=== PATIENT | female | born 1960 | race Caucasian/White ===

== ENCOUNTER 2021-09-25 03:55 | Emergency (ER) | payer MEDICARE, OTHER ==
[~2021-09-25] VITALS: Ht 157 cm; Wt 81.6 kg
--- OUTSIDE RECORDS SUMMARY | 2021-09-25 04:01 | XMS REPORT | Clinical Summary ---
Author Author [facility] Organization [facility] Address Unknown Phone Unavailable Care Team Providers Care Survey Research Associate Name Role Phone None, Pcp PP Unavailable Allergies Comments Active Allergy Reactions Severity Noted Date Made pt hallucinate. Lorazepam 11/20/2019 Sulfa (Sulfonamide Anaphylaxis High 11/20/2019 Antibiotics) Medications No known medications Active Problems Not on file Social History Date Tobacco Use Types Packs/Day Years Used Current Every Day Smoker 0.5 5 Smokeless Tobacco: Never Used Comments Alcohol Use Standard Drinks/Week occasional Yes 0 (1 standard drink = 0.6 o z pure alcohol) Alcohol Habits Answer Date Recorded How often do you have a drink containing alcohol? No t asked How many drinks containing alcohol do you have on No t asked a typical day when you are drinking? How often do you have six or more drinks on one Not asked occasion? Comment: occasional 11/20/2019 Sex Assigned at Date Recorded Not on file Last Filed Vital Signs Reading Time Taken Comments Vital Sign 153/81 11/20/2019 4:11 PM GRAVEL WHEELER Blood Pressure 86 11/20/2019 4:11 PM GRAVEL WHEELER Pulse - - Temperature 16 11/20/2019 4:11 PM GRAVEL WHEELER Respiratory Rate 96% 11/20/2019 4:11 PM GRAVEL WHEELER Oxygen Saturation - - Inhaled Oxygen Concentration - - Weight - - Height - - Body Mass Index Plan of Treatment Not on file Results Not on filefrom Last 3 Months Insurance Type Payer Benefit Subscriber ID Effective Phone Address Plan / Dates Group MEDICARE MEDICARE [id number] 2016-P 2019 PART A AND [employer] [place] [phone] [place] [id number] [address] MEDICAID -Present [address] [place] [address] 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
--- OUTSIDE RECORDS SUMMARY | 2021-09-25 04:01 | XMS REPORT | Clinical Summary ---
Author Author [facility] Organization [facility] Address Unknown Phone Unavailable Care Team Providers Care Sterile Supervisor Name Role Phone Michell Carolina APRN PCP Source Comments Some departments are not documenting in the electronic medical record. If you d o not see the information that you expected, contact Release of Information in [facility] Health Information Management department at [phone] for further assistan ce in locating additional records.[facility] Allergies Not on File Medications Not on file Active Problems Not on file Social History Date Tobacco Use Types Packs/Day Years Used Never Assessed Sex Assigned at Date Recorded Not on file Last Filed Vital Signs Not on file Plan of Treatment Health Maintenance Due Date Last Done Comments HIV SCREENING 1973 DTAP/TDAP VACCINES (1 - 1976 Tdap) HEPATITIS C SCREENING 1976 PHYSICAL (COMPREHENSIVE) 1976 EXAM CERVICAL CANCER SCREENING 1979 BREAST CANCER SCREENING 1998 COLORECTAL CANCER 2008 SCREENING SHINGLES RECOMBINANT 2008 VACCINE (1 of 2) INFLUENZA VACCINE 07/01/2021 Results Not on filefrom Last 3 Months Advance Directives Patient Industrial Relations Officer Explanation Type Date Recorded Advance 05/17/2014 11:13 AM Directive/DPOA
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
--- NOTE | 2021-09-25 04:20 | ED Cough/URI ---
General Chief Complaint: COVID19 Suspect/Confirmed Stated Complaint: SOB,CONGESTION,COUGH Source: patient Exam Limitations: no limitations History of Present Illness Date Seen by Provider: Sep 25, 2021 Time Seen by Provider: 03:56 Initial Comments 61yoF coming in for cough, congestion, and SOB for a few months worsening over the past week. Taking OTC meds for congestion. More SOB with laying flat now. Does not have a lot of issues sleeping however. No fever, chills, chest pain, abd pain, n/v/d, weakness, numbness, or any other concerns. Fully vaccinated for COVID with Moderna. Used to smoke but quit a year ago. Allergies and Home Medications Allergies Coded Allergies: Sulfa (Sulfonamide Antibiotics) (Verified Allergy, Unknown, 09/25/21) Patient Home Medication List Home Medication List Reviewed: Yes Review of Systems Review of Systems Constitutional: No chills, No fever EENTM: nose congestion Respiratory: cough, short of breath Cardiovascular: No chest pain, No palpitations, No syncope Gastrointestinal: No abdominal pain, No diarrhea, No nausea, No vomiting Genitourinary: no symptoms reported Musculoskeletal: no symptoms reported Skin: no symptoms reported Psychiatric/Neurological: No Symptoms Reported Hematologic/Lymphatic: No Symptoms Reported Immunological/Allergic: no symptoms reported All Other Systems Reviewed Negative Unless Noted: Yes Past Jehvtqg-Ejsazz-Atfrrj Hx Patient Social History Tobacco Use?: No Smoking Status: Former Smoker Past Medical History Surgeries: Yes Appendectomy Physical Exam Vital Signs - First Documented Capillary Refill : Height: '" Weight: lbs. oz. kg; BMI Method: General Appearance: WD/WN, no apparent distress HEENT: PERRL/EOMI, normal ENT inspection, pharynx normal Neck: non-tender, full range of motion, supple, normal inspection Respiratory: chest non-tender, lungs clear, normal breath sounds, no respirat ory distress, no accessory muscle use Cardiovascular: regular rate, rhythm, no edema, no murmur Gastrointestinal: normal bowel sounds, non tender, soft; No distended, No guarding, No rebound Extremities: normal range of motion, non-tender, normal inspection, no pedal edema, no calf tenderness, normal capillary refill Neurologic/Psychiatric: no motor/sensory deficits, alert, normal mood/affect Skin: normal color, warm/dry Lymphatic: no adenopathy Progress/Results/Core Measures Suspected Sepsis SIRS Temperature: Pulse: Respiratory Rate: Laboratory Tests 09/25/21 04:51: White Blood Count 8.7 Blood Pressure / Mean: Laboratory Tests 09/25/21 04:51: Creatinine 0.75, Platelet Count 277, Total Bilirubin 0.3 Results/Orders Lab Results Laboratory Tests Test 09/25/21 04:51 Range/Units White Blood Count 8.7 4.3-11.0 10^3/uL Red Blood Count 3.81 3.80-5.11 10^6/uL Hemoglobin 12.8 11.5-16.0 g/dL Hematocrit 38 35-52 % Mean Corpuscular Volume 98 80-99 fL Mean Corpuscular Hemoglobin 34 25-34 pg Mean Corpuscular Hemoglobin Concent 34 32-36 g/dL Red Cell Distribution Width 12.5 10.0-14.5 % Platelet Count 277 130-400 10^3/uL Mean Platelet Volume 8.8 L 9.0-12.2 fL Immature Granulocyte % (Auto) 1 % Neutrophils (%) (Auto) 60 42-75 % Lymphocytes (%) (Auto) 30 12-44 % Monocytes (%) (Auto) 7 0-12 % Eosinophils (%) (Auto) 2 0-10 % Basophils (%) (Auto) 1 0-10 % Neutrophils # (Auto) 5.2 1.8-7.8 10^3/uL Lymphocytes # (Auto) 2.6 1.0-4.0 10^3/uL Monocytes # (Auto) 0.6 0.0-1.0 10^3/uL Eosinophils # (Auto) 0.2 0.0-0.3 10^3/uL Basophils # (Auto) 0.1 0.0-0.1 10^3/uL Immature Granulocyte # (Auto) 0.0 0.0-0.1 10^3/uL Sodium Level 136 135-145 MMOL/L Potassium Level 3.7 3.6-5.0 MMOL/L Chloride Level 104 98-107 MMOL/L Carbon Dioxide Level 21 21-32 MMOL/L Anion Gap 11 5-14 MMOL/L Blood Urea Nitrogen 11 7-18 MG/DL Creatinine 0.75 0.60-1.30 MG/DL Estimat Glomerular Filtration Rate 78 BUN/Creatinine Ratio 15 Glucose Level 107 H 70-105 MG/DL Calcium Level 10.2 H 8.5-10.1 MG/DL Corrected Calcium 9.9 8.5-10.1 MG/DL Total Bilirubin 0.3 0.1-1.0 MG/DL Aspartate Amino Transf (AST/SGOT) 24 5-34 U/L Alanine Aminotransferase (ALT/SGPT) 37 0-55 U/L Alkaline Phosphatase 86 40-136 U/L Troponin I < 0.028 <0.028 NG/ML Total Protein 7.4 6.4-8.2 GM/DL Albumin 4.4 3.2-4.5 GM/DL My Orders Orders - HUDSON DUNCAN MD Chest 1 View, Ap/Pa Only (09/25/21 04:31) BNP (09/25/21 04:31) Cbc With Automated Diff (09/25/21 04:31) Comprehensive Metabolic Panel (09/25/21 04:31) Troponin I (09/25/21 04:31) Ekg Tracing (09/25/21 04:31) Coronavirus Sars-Cov-2 So 2018 (09/25/21 04:31) Albuterol/Ipra Inhalation Soln (Duoneb I (09/25/21 04:47) Svn Small Volume Nebulizer (09/25/21 04:47) Vital Signs/I&O 09/25/21 09/25/21 04:08 04:08 Temp 37.1 Pulse 84 Resp 20 B/P (MAP) 193/89 (123) Pulse Ox 97 O2 Delivery Room Air Room Air Capillary Refill : Progress Note : Progress Note 61-year-old female with above history coming in due to progressive cough and shortness of breath. ABCs were intact and vitals were stable on presentation. Her oxygen saturation is 98% even with ambulation. EKG normal without any acute ischemic changes. Skull exam reassuring with clear lung rock and no signs of volume overload. Basic labs reassuring as well including normal electrolytes, normal kidney function, negative troponin, normal BNP. I have a low suspicion for any significant cardiac etiology for her dyspnea. Trialed an inhaler because of her significant smoking history which helped minimally. This likely is a viral upper respiratory infection. COVID testing sent and is pending. I believe she is stable for discharge. She was sent home with strict return precautions ECG Initial ECG Impression Date: Sep 25, 2021 Initial ECG Impression Time: 04:39 Initial ECG Rate: 87 Initial ECG Rhythm: Normal Sinus Comment Narrow QRS, normal axis, no significant ST changes or T wave abnormalities Diagnostic Imaging Diagonstic Imaging: Xray Plain Films/CT/US/NM/MRI: chest Comments X-ray chest ordered and interpreted by me showing no pneumonia, pneumothorax, normal cardiac silhouette, and no effusion. Departure Impression Primary Impression: Upper respiratory infection Qualified Codes: J06.9 - Acute upper respiratory infection, unspecified Additional Impressions: Person under investigation for COVID-19 Shortness of breath Disposition: 01 HOME, SELF-CARE Condition: Stable Departure-Patient Inst. Decision time for Depature: 05:33 Referrals: [facility] (PCP/Family) Primary Care Physician Patient Instructions: Viral Upper Respiratory Infection, Adult (DC) Add. Discharge Instructions: You were seen in the emergency department for your cough, and feeling short of breath especially at nighttime. Your labs are all reassuring. It appears like your heart and lungs are doing well. Your chest x-ray looks normal as well and that does not look like you have any type of pneumonia. You can continue to take the [id number] cough medicine that that is helping you. I do recommend you follow-up with your primary care doctor. Your blood pressure was high today which can be from the medications you are taking for your cough and congestion. Be sure to get this checked as you may need to be on medications for this. HUDSON DUNCAN MD Sep 25, 2021 04:20
[2021-09-25] MEDS ORDERED: ALBUTEROL/IPRATROP (COMBIVENT RESPIMAT) 4 GM INHALER IH STA (04:31)
[2021-09-25] MEDS ORDERED: RT-ALBUTEROL/IPRATROPIUM 3 ML (DUONEB) VIAL INH STA (04:47)
[2021-09-25 04:59] LABS: BASOPHILS # (AUTO) 0.1 10^3/uL (0.0-0.1); BASOPHILS % (AUTO) 1 % (0-10); EOSINOPHILS # (AUTO) 0.2 10^3/uL (0.0-0.3); EOSINOPHILS % (AUTO) 2 % (0-10); HEMATOCRIT 38 % (35-52); HEMOGLOBIN 12.8 g/dL (11.5-16.0); LYMPHOCYTES # (AUTO) 2.6 10^3/uL (1.0-4.0); LYMPHOCYTES % (AUTO) 30 % (12-44); MEAN CORPUSCULAR HEMOGLOBIN 34 pg (25-34); MEAN CORPUSCULAR HGB CONC 34 g/dL (32-36); MEAN CORPUSCULAR VOLUME 98 fL (80-99); MEAN PLATELET VOLUME 8.8 fL (9.0-12.2); MONOCYTES # (AUTO) 0.6 10^3/uL (0.0-1.0); MONOCYTES % (AUTO) 7 % (0-12); NEUTROPHILS # (AUTO) 5.2 10^3/uL (1.8-7.8); NEUTROPHILS % (AUTO) 60 % (42-75); PLATELET COUNT 277 10^3/uL (130-400); WHITE BLOOD COUNT 8.7 10^3/uL (4.3-11.0)
[2021-09-25 05:17] LABS: ALBUMIN 4.4 GM/DL (3.2-4.5)
[2021-09-25 05:18] LABS: CHLORIDE 104 MMOL/L (98-107); POTASSIUM 3.7 MMOL/L (3.6-5.0); SODIUM 136 MMOL/L (135-145)
[2021-09-25 05:19] LABS: CALCIUM 10.2 MG/DL (8.5-10.1)
[2021-09-25 05:20] LABS: GLUCOSE 107 MG/DL (70-105); TOTAL PROTEIN 7.4 GM/DL (6.4-8.2)
[2021-09-25 05:21] LABS: CARBON DIOXIDE 21 MMOL/L (21-32)
[2021-09-25 05:22] LABS: BILIRUBIN,TOTAL 0.3 MG/DL (0.1-1.0)
[2021-09-25 05:23] LABS: ALKALINE PHOSPHATASE 86 U/L (40-136)
[2021-09-25 05:24] LABS: CREATININE SERUM 0.75 MG/DL (0.60-1.30); GFR ESTIMATED 78
[2021-09-25 05:25] LABS: BUN/CREATININE RATIO 15
[2021-09-25 05:27] LABS: ALANINE AMINOTRANSFERASE 37 U/L (0-55)
--- NOTE | 2021-09-25 05:46 | Diagnostic Imaging Report ---
PATIENT HISTORY: SOB. Cough TECHNIQUE: Single frontal view of the chest. COMPARISON: None FINDINGS: The lung volumes are normal. No focal consolidation is seen. No large pleural effusion or pneumothorax is seen. The cardiomediastinal silhouette is normal in size and contour. No acute osseous abnormality is seen. IMPRESSION: No acute pulmonary abnormality seen. Dictated by: Dictated on workstation # [id number]
[2021-09-25 06:11] VITALS: BP 167/94
== END 2021-09-25 06:11 | disposition home or self-care (01) ==
LOC: ER 03:59
DX: J06.9 Acute upper respiratory infection, unspecified (principal); R06.02 Shortness of breath; Z20.822 Contact with and (suspected) exposure to COVID-19; Z87.891 Personal history of nicotine dependence
CPT/HCPCS: 36415; 71045; 80053; 83880; 84484; 85025; 87635; 93005